=== PATIENT | female | born 1985 | race American Indian/Alaskan Native ===

== ENCOUNTER 2024-02-12 08:40 | Emergency (ER) | payer OTHER ==
[~2024-02-12] VITALS: Ht 165.1 cm; Wt 63.6 kg
[2024-02-12] MEDS ORDERED: ARMOUR THYROID15 MG PO (08:52)
[2024-02-12 09:17] LABS: BASOPHILS 0.4 % (0-2); EOSINOPHILS 1.3 % (0-6); HEMATOCRIT 37.9 % (35.0-50.0); HEMOGLOBIN 12.8 g/dL (12.0-18.0); LYMPHOCYTES 11.4 % (24-44); MCH 30.5 (27-36); MCHC 33.8 g/dl (30-36); MCV 90.3 fl (81-99); MONOCYTES 7.2 % (0-12); NEUTROPHILS 79.7 % (39-80); PLATELET COUNT 241 K/uL (140-440); RBC 4.19 M/ul (4.3-5.7); RDW 13.5 (10.5-15.0)
[2024-02-12 09:35] LABS: ALBUMIN 3.8 g/dL (3.4-5.0); ALBUMIN/GLOBULIN RATIO 0.97 (1.1-2.4); ANION GAP 13.7 (7-21); BILIRUBIN, TOTAL 0.7 ng/dL (0.2-1.0); BUN/CREATININE RATIO 10.2 (6.0-28.6); CALCIUM 8.8 mg/dL (8.5-10.1); CREATININE, SERUM 0.98 mg/dL (0.55-1.02); POTASSIUM 3.7 mmol/L (3.5-5.1); PROTEIN, TOTAL 7.7 g/dL (6.4-8.2)
[2024-02-12 09:38] LABS: LACTIC ACID, BLOOD 0.5 mmol/L (0.4-2.0)
[2024-02-12] MEDS ORDERED: NAPROSYN500 MG PO (10:32)
[2024-02-12] MEDS ORDERED: CEPHALEXIN500 M1 PO (10:32)
[2024-02-12] MEDS ORDERED: CEFTRIAXONE/SODIUM CHLORIDE 2 GM/100 ML PIGGYBACK IV ONE (10:45)
[2024-02-12 11:54] VITALS: BP 105/76
== END 2024-02-12 11:54 | disposition home or self-care (01) ==
LOC: ED 08:40
PROVIDERS: Emergency Medicine
DX: L03.317 Cellulitis of buttock (principal)
CPT/HCPCS: 36415; 76882; 80053; 83605; 85025; 96365; 99284-25; J0696

== ENCOUNTER 2024-02-13 08:38 | Emergency (ER) | payer OTHER ==
[~2024-02-13] VITALS: Ht 165.1 cm; Wt 63.6 kg
[~2024-02-13 08:38] MED LIST: ARMOUR THYROID15 MG PO; CEPHALEXIN500 M1 PO; NAPROSYN500 MG PO
--- OUTSIDE RECORDS SUMMARY | 2024-02-13 08:41 | XMS ---
PreManage Notification: LOW [employer] Events No recent Security Events currently on file CRITERIA MET - [facility] - 2 Visits in 30 Days CARE PROVIDERS There are no care providers on record at this time. Harjit has no Care Guidelines for this patient. Horacio VISIT COUNT (12 MO.) 2 [facility] [place] [facility] TOTAL 2 NOTE: Visits indicate total known visits. ED/C VISIT TRACKING (12 MO.) 02/13/2024 08:[address] [facility] [place] TYPE: Emergency COMPLAINT: - POST OP PROBLEM 02/12/2024 08:41 [facility] TYPE: Emergency COMPLAINT: - POST OP PROBLEM INPATIENT VISIT TRACKING (12 MO.) No inpatient visits to display in this time frame [email or web address]
[2024-02-13 09:03] VITALS: BP 100/57
== END 2024-02-13 09:04 | disposition home or self-care (01) ==
LOC: ED 08:38
DX: L03.317 Cellulitis of buttock (principal); E03.9 Hypothyroidism, unspecified; Z79.899 Other long term (current) drug therapy; Z79.1 Long term (current) use of non-steroidal anti-inflammatories (NSAID)
CPT/HCPCS: 99282